=== PATIENT | male | born 1940 | race Caucasian/White ===

== ENCOUNTER 2018-12-14 15:13 | Inpatient (IN) | payer MEDICARE, OTHER ==
[~2018-12-14] VITALS: Ht 175.3 cm; Wt 76.2 kg
--- NOTE | ~2018-12-14 | CON ---
[address] [address] CONSULTATION Name: CONCHA MEZA Room: [address] IN .R.#: [id number] Admission: 12/14/18 Attend Phys: Cathleen Norton Discharge: Date of : 40 Report #: [id number] THIS REPORT FOR: //name// CC: ATUL Bingham Physician staff DATE OF SERVICE: 12/15/2018 HISTORY OF PRESENT ILLNESS: This is a 78-year-old male with significant family history of colon cancer and personal history of colon polyps, who reports that for the last 2 months, he has had blood in the stool and his bowel habit change and has diarrhea. He also occasionally may have mid abdominal pain. He denies any upper GI symptoms as he denies nausea, vomiting, dyspepsia, dysphagia or odynophagia. The patient reports that he has lost over 50 pounds in the last 6 months, but claims that he has done that intentionally as he quit eating much and also does not drink soda pops anymore. PAST MEDICAL HISTORY: Significant for history of paroxysmal atrial fibrillation, seizure disorder, sleep apnea, basal cell carcinoma and squamous cell carcinoma with multiple areas including head and shoulder where he had recent resection of his skin. ALLERGIES: No known drug allergy. MEDICATIONS: Please refer to MAR. SOCIAL HISTORY: The patient has remote history of tobaccoism, but has quit more than 20 years ago. He admits to drinking alcohol only on special occasions. FAMILY HISTORY: Significant for colon cancer in first-degree relatives. PHYSICAL EXAMINATION: VITAL SIGNS: Reveals blood pressure of 128/65, respirations 17, pulse 67, temperature 98.2. LUNGS: Clear. CARDIOVASCULAR: Regular. ABDOMEN: Soft, tender to palpation in the periumbilical region. Bowel sounds are positive. NEUROLOGIC: The patient is alert and oriented x 3. There is no focal neurologic deficit. SKIN: The patient has sutures on his head and left clavicle region when he had recent skin resection for skin cancer. LABORATORY DATA: Reveal sodium of 142, potassium 4.2, BUN is 11, [place] [address] CONSULTATION Name: CONCHA MEZA Room: [address] IN [facility]#: [id number] Admission: 12/14/18 Attend Phys: Cathleen Norton Discharge: Date of : 40 Report #: [id number] 0.8, glucose 89, AST 17, ALT 26, alkaline phosphatase 27. Albumin is 3.7. WBC is 4.3 with hemoglobin of 11.6 and platelet of 225. IMAGING: CT of abdomen and pelvis was obtained. This showed a 6.5 cm circumferential mucosal lesion in the hepatic flexure of the colon, most suspicious for malignancy. There is also bladder wall thickening and prostatic enlargement. The small bowel appears unremarkable. The stomach and spleen are unremarkable. Gallbladder is partially contracted. There is a branching area of the low density in the right lobe of the liver. This is too small to accurately characterize and measures less than 1 cm. This may suggest ductal dilatation. A smaller liver lesion is felt less likely, but cannot be excluded based on this study. ASSESSMENT AND PLAN: The patient with history of change in bowel habits, blood in the stool, abnormal CTA with 6.5 cm circumferential hepatic lesion suspicious for malignancy, who also has weight loss even though he claims that this is intentional. He has a strong family history of colon cancer. I will perform colonoscopy tomorrow. Meanwhile order CEA level and monitor H and H. By: 1144 [id number] Flores MD /nt
--- NOTE | ~2018-12-14 | PROC ---
[address] [address] PROCEDURE REPORT Name: CONCHA MEZA Room: [address] IN M.R.#: [id number] Admission: 12/14/18 Attend Phys: Michelle Jacoboo Discharge: Date of : 40 Report #: [id number] THIS REPORT FOR: //name// For GI report, please see the Provation report in Perceptive 7 content. By: [id number] Records Staff MARIANA /DARI
[2018-12-14 16:00] VITALS: BP 103/62
--- NOTE | 2018-12-14 16:00 | NUR ---
PATIENT ARRIVED TO UNIT AT 1540. ALERT AND ORIENTED X 4. AMBULATED FROM WHEELCHAIR TO BED. NO IV ACCESS AT THIS TIME. DENIES PAIN AND NAUSEA. ORIENTED PATIENT TO ROOM. CALL LIGHT WITHIN REACH. NURSING WILL CONTINUE TO MONITOR.
[2018-12-14 17:47] LABS: ABSOLUTE EOSINOPHILS 0.1 thou/uL (0.0-0.7); ABSOLUTE LYMPHOCYTES 0.7 thou/uL (0.8-5.3); ABSOLUTE MONOCYTES 0.3 thou/uL (0.0-1.2); ABSOLUTE NEUTROPHILS 2.6 thou/uL (1.6-8.1); BASOPHILS 0.5 %; EOSINOPHILS 3.1 %; HEMATOCRIT 36.7 % (42.0-52.0); HEMOGLOBIN 12.5 gm/dL (14.0-18.0); LYMPHOCYTES 19.6 %; MCH 28.2 pg (26.0-34.0); MCHC 33.9 g/dL (28.0-37.0); MCV 83.1 fL (80.0-100.0); MONOCYTES 7.2 %; MPV 8.1 fl. (7.2-11.1); NUCLEATED RBCS 0 /100WBC; PLATELET COUNT* 229 thou/uL (150-400); POLYS 69.6 %; RBC 4.41 mil/uL (4.50-6.00); RDW-CV 15.2 % (10.5-14.5); WBC 3.8 thou/uL (4.0-11.0)
[2018-12-14 18:03] LABS: ALBUMIN 3.7 g/dL (3.4-5.0); CALCIUM 8.6 mg/dL (8.5-10.1); CREATININE 0.9 mg/dL (0.6-1.3); POTASSIUM 3.8 mmol/L (3.5-5.1); TOTAL BILIRUBIN 0.4 mg/dL (<0.1-1.0); TOTAL PROTEIN 7.4 g/dL (6.4-8.2)
--- NOTE | 2018-12-14 18:51 | NUR ---
PATIENT ALERT AND ORIENTED X 4. VITAL SIGNS STABLE ON ROOM AIR. UP INDEPENDENTLY IN ROOM. IV PATENT AND SALINE LOCKED. DENIES PAIN AND NAUSEA. HOURLY ROUNDS MAINTAINED SINCE ARRIVING TO UNIT. CALL LIGHT WITHIN REACH. NURSING WILL CONTINUE TO MONITOR.
[2018-12-14] MEDS ORDERED: PHENOBARBITAL32.4 M2 PO (19:01)
[2018-12-14] MEDS ORDERED: COMBIGAN EYE DR10 ML OPHTHALMIC (19:01)
[2018-12-14] MEDS ORDERED: LATANOPROST 0.2.5 ML OPHTHALMIC (19:02)
[2018-12-14] MEDS ORDERED: BRIMONIDINE TART5 ML OPHTHALMIC (19:02)
[2018-12-14] MEDS ORDERED: PHENYTOIN SODI100 M3 PO (19:02)
[2018-12-14] MEDS ORDERED: LORATIDINE 10 M10 M1 PO (19:03)
[2018-12-14] MEDS ORDERED: LUTEIN20 MG PO (19:04)
[2018-12-14 20:30] VITALS: BP 115/73
[2018-12-15 04:38] LABS: CALCIUM 8.5 mg/dL (8.5-10.1); CREATININE 0.8 mg/dL (0.6-1.3); POTASSIUM 4.2 mmol/L (3.5-5.1)
[2018-12-15 05:24] LABS: HEMATOCRIT 34.1 % (42.0-52.0); HEMOGLOBIN 11.6 gm/dL (14.0-18.0); MCH 28.3 pg (26.0-34.0); MCHC 33.9 g/dL (28.0-37.0); MCV 83.5 fL (80.0-100.0); MPV 8.7 fl. (7.2-11.1); RBC 4.09 mil/uL (4.50-6.00); RDW-CV 15.2 % (10.5-14.5); WBC 4.3 thou/uL (4.0-11.0)
--- NOTE | 2018-12-15 05:43 | NUR ---
PT ALERT AND ORIENTED. VSS RA. PT HAD BM WITH SMALL AMOUNT OF BLOOD SMALL AMOUNT OF BLOOD. DENIED PAIN. NO NAUSEA/VOMITING. HOME MEDS STARTED PER PT REQUEST, GIVEN ORDERED. PT SLEEPING THROUGH THE NIGHT WITH HOME CPAP ON. NPO FOR ABD CT. WILL CONTINUE TO MONITOR.
[2018-12-15] MEDS ORDERED: RAPAFLO8 MG PO (07:35)
[2018-12-15 07:50] VITALS: BP 128/65
[2018-12-15 16:00] VITALS: BP 134/72
--- NOTE | 2018-12-15 17:08 | NUR ---
ASSUMED CARE OF PATIENT AT APPROX 0730. ALERT AND ORIENTED X4. ASSESSMENT COMPLETED AND CHARTED. VSS ON ROOM AIR. NO COMPLAINTS OF PAIN, NAUSEA OR SOA. CLEAR LIQUID DIET TODAY, NPO AT 0200 FOR COLONOSCOPY TOMORROR. PATIENTS BOWEL PREP STARTED AND PATIENT HAS BEGUN HAVING STOOLS. UP AD KAYLA TO USE THE BATHROOM. NO OTHER COMPLAINTS THIS SHIFT. HOURLY ROUNDS COMPLETED. CALL LIGHT WITHIN REACH. NURSING WILL CONTINUE TO MONITOR.
[2018-12-15 20:35] VITALS: BP 122/68
[2018-12-15 23:43] VITALS: BP 122/68
[2018-12-16 03:42] LABS: HEMATOCRIT 36.2 % (42.0-52.0); HEMOGLOBIN 12.1 gm/dL (14.0-18.0); MCH 27.9 pg (26.0-34.0); MCHC 33.5 g/dL (28.0-37.0); MCV 83.4 fL (80.0-100.0); MPV 9.7 fl. (7.2-11.1); RBC 4.34 mil/uL (4.50-6.00); RDW-CV 15.5 % (10.5-14.5); WBC 4.3 thou/uL (4.0-11.0)
[2018-12-16 03:48] LABS: CALCIUM 8.6 mg/dL (8.5-10.1); CREATININE 0.7 mg/dL (0.6-1.3); POTASSIUM 3.7 mmol/L (3.5-5.1)
--- NOTE | 2018-12-16 05:15 | NUR ---
VSS RA. MEDS GIVEN ORDERED. PT BOWEL PREPED FOR COLONOSCOPY. CLEAR STOOL NOTED. EKG DONE ORDERD. NO C/O PAIN, N/V. NPO AT 0200. AT BEDSIDE. WILL CONTINUE TO MONITOR.
[2018-12-16 06:20] VITALS: BP 158/82
--- NOTE | 2018-12-16 06:27 | NUR ---
SEIZURE EPISODE WITNESSED BY . POST SEIZURE VITALS STABLE. PT OPENED HIS EYES TO NAME. SUCTION PLACED IN THE ROOM. RAILS PADDED. WILL CONTINUE TO MONITOR.
[2018-12-16 08:00] VITALS: BP 106/71
[2018-12-16 16:59] VITALS: BP 115/65
--- NOTE | 2018-12-16 17:03 | NUR ---
ASSUMED CARE OF PATIENT AT APPROX 0730. ALERT AND ORIENTED X4. ASSESSMENT COMPLETED AND CHARTED. VSS ON ROOM AIR. NO COMPLAINTS OF PAIN, NAUSEA, OR SOA. PATIENTS STATED THAT HE HAD A SEIZURE EARLY THIS MORNING. THIS WAS REPORTED TO PACU, ANETHESIA STATED THAT PATIENT NEEDS TO BE SEIZRE FREE FOR 24 HOURS BEFORE GOING UNDER FOR PROCEDURE. DR DEGROOT ORDERED LORAZEPAN Q8 TO BE GIVEN. PATIENTS HOME SEIZURE MEDS GIVEN ORDERED. PATIENTS BOWEL PREP IS COMPLETED, WILL CONTINUE WITH CLEARS AND NPO AT MIDNIGHT TO HAVE COLONOSCOPY TOMORROW. PATIENT UP AD KAYLA IN THE ROOM. NUMEROUS FAMILY AT BEDSIDE THROUGHOUT SHIFT. NO COMPLAINTS VOICED THIS SHIFT. CALL LIGHT WITHIN REACH. HOURLY ROUNDS COMPLETED. NURSING WILL CONTINUE TO MONITOR.
[2018-12-16 21:10] VITALS: BP 131/71
[2018-12-16 23:15] VITALS: BP 114/63
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
[2018-12-17 00:06] VITALS: BP 114/63
[2018-12-17 00:33] VITALS: BP 126/70
--- NOTE | 2018-12-17 05:05 | NUR ---
MEDS GIVEN ORDERED, VSS RA. FALL REPORTED BY , INTERVENTIONS COMPLETED AND CHARTED PER PROTOCOL. DR AND DROP MACHINE OPERATOR NOTIFIED, NO ORDERS RECEIVED. PT DENIED PAIN. NPO AT MIDNIGHT. WILL CONTINUE TO MONITOR.
[2018-12-17 05:06] LABS: HEMATOCRIT 36.4 % (42.0-52.0); HEMOGLOBIN 12.2 gm/dL (14.0-18.0); MCH 27.9 pg (26.0-34.0); MCHC 33.6 g/dL (28.0-37.0); MCV 83.2 fL (80.0-100.0); MPV 8.2 fl. (7.2-11.1); RBC 4.38 mil/uL (4.50-6.00); RDW-CV 14.9 % (10.5-14.5); WBC 5.2 thou/uL (4.0-11.0)
[2018-12-17 07:50] VITALS: BP 107/64
--- NOTE | 2018-12-17 15:05 | EKG ---
[place] [address] ELECTROCARDIOGRAM REPORT Name: CONCHA MEZA Room: [address] ADM IN M.R.#: [id number] Admission: 12/14/18 Attend Phys: Michelle Vigil Discharge: Date of : 40 Report #: [id number] THIS REPORT FOR: //name// [facility] Test Date: 2018-12-15 Test Time: 22:31:58 Pat Name: CONCHA ANDERSONSH Department: Room: [address] Gender: M Mortgage Closing Clerk: RB : 1940 Requested By: Tamie Flores Order Number: [id number] Reading MD: James Erazo Measurements Intervals Crane Rate: 62 P: 130 MT: 66 QRS: 48 QRSD: 97 T: 30 QT: 422 QTc: 429 Interpretive Statements Sinus rhythm poor r wave progression Supraventricular bigeminy Short MT interval No previous ECG available for comparison Electronically Signed On 12-17-2018 15:05:18 STORE SALES CONSULTANT by James Erazo [email or web address] <ELECTRONICALLY SIGNED> By: James Erazo MD, [facility] 12/17/18 1505 30 30 James Erazo MD, FACC /EPI
--- NOTE | 2018-12-17 17:45 | NUR ---
PATIENT NPO THIS AM FOR COLONOSCOPY. PATIENT RETURNED FROM COLONOSCOPY THIS EVENING, VSS. PATIENT TO HAVE SURGERY TOMORROW AT 0730. NPO AFTER MIDNIGHT. MAG CITRATE AND DUCOLAX TO BE GIVEN THIS EVENING FOR SURGERY PREP. CLEAR LIQUID DIET. IV SL. UP WITH ASSISTANCE.
[2018-12-17 19:44] VITALS: BP 105/67
[2018-12-18 02:48] VITALS: BP 97/58
[2018-12-18 04:00] VITALS: BP 97/58
--- NOTE | 2018-12-18 04:45 | NUR ---
ASSUMED CARE OF PT 12/17/18 AT APPROX 1930, PT A&OX4 THORUGHOUT SHIFT, VSS, PT ON ROOM AIR, COLON PREP COMPLETED, ASSESSMENTS AND HOURLY ROUNDINGS COMPLETED, WILL CONTINUE TO MONITOR.
--- NOTE | 2018-12-18 09:40 | CON ---
[address] [address] CONSULTATION Name: CONCHA MEZA Room: [address] IN .R.#: [id number] Admission: 12/14/18 Attend Phys: Michelle Vigil Discharge: Date of : 40 Report #: [id number] THIS REPORT FOR: //name// CC: ATUL Bingham Physician staff DATE OF SERVICE: 12/16/2018 ONCOLOGY CONSULTATION REASON FOR CONSULTATION: Colon mass. SUBJECTIVE: This is a 78-year-old male who has been very active and had a colonoscopy per the family in 2016 noticed blood in the stool with a change in his bowel habits associated with diarrhea, intermittent mild generalized abdominal pain. He denies any nausea, vomiting or abdominal pain. He had lost 50 pounds in the last 6 months. The patient had an evaluation at the Emergency Room with a CT scan of contrast, which showed 6.5 circumferential mucosal lesion in the hepatic flexure of the colon, most suspicious of colon cancer. The patient is in the process of having colonoscopy today. REVIEW OF SYSTEMS: All systems were reviewed, it was negative except the above. PAST MEDICAL HISTORY: AFib, seizure disorder, sleep apnea, basal cell carcinoma status post resection. MEDICATIONS: Per admission list. ALLERGIES: SULFA. SOCIAL HISTORY: The patient lives independently at home, lives with his . He is a former smoker, more than 20 years ago. He drinks alcohol socially. FAMILY HISTORY: Positive for colon cancer in the family. PHYSICAL EXAMINATION: VITAL SIGNS: Today; temperature is 36.6, pulse is 85, respiration is 18 and blood pressure is 158/82 GENERAL: The patient was sitting in chair, was not in acute distress. LUNGS: Clear to auscultations bilaterally. HEART: Regular rate and rhythm. S1, S2 within normal limits. ABDOMEN: Soft, nontender, nondistended, bowel sounds positive. LABORATORY DATA: Labs today; WBC 4.3, hemoglobin 12.1 and platelets of 115[place] [address] CONSULTATION Name: CONCHA MEZA Room: [address] IN [facility]#: [id number] Admission: 12/14/18 Attend Phys: Michelle selby [place] Discharge: Date of : 40 Report #: [id number] Sodium is 138, potassium 3.7, creatinine 0.7, bilirubin 0.4, AST 17, ALT 26 and alkaline phosphatase 127. CEA is pending. ASSESSMENT: This is a 78-year-old male who has been diagnosed with a colon mass at the hepatic flexure, 6.5 circumferential mass. The patient had a colonoscopy back in 2016 per the family. RECOMMENDATIONS: 1. Colonoscopy today for a tissue sampling. 2. We will obtain a CT chest to complete staging. 3. A CEA has been ordered and still pending. 4. In regards of the area of low density in the right lobe of the liver measuring less than 1 cm, it was felt to be related to mild ductal dilatation; however, small liver mass is less likely, cannot be excluded. I would like to wait until we get a diagnosis of malignancy. Options will be liver MRI before proceeding with a standard oncological resection with surgery. <ELECTRONICALLY SIGNED> By: Olivia Levine MD 12/18/18 0940 0913 [id number] Levine MD /nt
--- NOTE | 2018-12-18 14:06 | NUR ---
PT ARRIVED TO FLOOR ABOUT 1320. PT A&Ox4, DROWSY. CPAP ON WITH 2LO2 GOING THROUGH IT. DRESSING SITES ARE C/D/I. PT DENIED N/V AND PAIN. JUSTIN PATENT. IV PATENT. FAMILY IN ROOM. ON CLEAR LIQUID DIET. PT HAS NOT AMBULATED SINCE RETURN TO FLOOR. FALL PRECAUTIONS IN PLACE. SPOKE WITH DR CHAVEZ PER SURGERY REQUEST ABOUT THE DILANTIN, STATED THAT SHE WILL BE BY IN THE MORNING 12/19 TO SPEAK WITH PT AND FAMILY. WILL CONTINUE TO MONITOR.
[2018-12-18 14:15] VITALS: BP 135/65
[2018-12-18 15:48] VITALS: BP 129/67
--- NOTE | 2018-12-18 17:06 | PATH ---
[address] [address] PATHOLOGY RPT PROCEDURE Name: CONCHA MEZA Room: [address] IN .R.#: [id number] Admission: 12/14/18 Date of : 40 Discharge: Report #: [id number] Path Case #: [id number] [facility] Accession Number: [id number] . 01 Material submitted: . colon - TRANSVERSE COLON MASS. Modifiers: transverse . 01 Clinical history: . None provided . 02 Diagnosis: TRANSVERSE COLON MASS: - ADENOCARCINOMA, MODERATELY DIFFERENTIATED, WITH PROMINENT EXTRACELLULAR MUCINOUS COMPONENT. SEE COMMENT. LBQ 12/18/2018 1005 Local . 02 Comment: Reviewed with Dr. Lyly Styles who agrees with the diagnosis. Dr. Flores notified at approximately 1540 on 12/18/2018. (SOHAN/db; 12/18/2018) . 02 Electronically signed: . Jeronimo Wong MD, Pathologist NPI- [id number] . 01 Gross description: . Received in formalin labeled "Concha Meza, transverse colon mass highly suspicious for cancer," are 3 segments of vega soft tissue measuring 0.9 x 0.9 x 0.2 cm in aggregate dimensions and ranging from 0.4 to 0.5 cm in maximum dimension. The specimen is submitted entirely in cassette A1. (TSD; 12/17/2018) TOB/TOB 12/17/2018 2338 Local . 02 Pathologist provided ICD-10: C18.4 . 02 CPT . [id number] Specimen Comment: A courtesy copy of this report has been sent to [phone] Specimen Comment: [phone], Specimen Comment: Report sent to ,DR LOPEZ / DR VELEZ Performed at: [address] [facility] [id number] MD Tony Sandoval MD Phone: [phone] Performed at: 02 [place] [address] PATHOLOGY RPT PROCEDURE Name: CONCHA MEZA Room: [address] IN [facility].#: [id number] Admission: 12/14/18 Date of : 40 Discharge: Report #: [id number] Path Case #: [id number] [address] LUDY Bray [id number] MD Jeronimo Wong MD Phone: [phone]
--- NOTE | 2018-12-18 18:18 | NUR ---
PT A&Ox4. VITALS STABLE. HARD OF HEARING. HAS BEEN RESTING SINCE LAST NOTE. TOLERATING CLEAR LIQUIDS. IV PATENT. PAIN CONTROLLED WITH OXY IR. DENIED N/V. HAS NOT AMBULATED DURING SHIFT. BY BEDSIDE. NHAN PATENT. FALL PRECAUTIONS IN PLACE. SEIZURE PRECAUTIONS IN PLACE. CALL LIGHT WITHIN REACH. WILL CONTINUE TO MONITOR.
[2018-12-18 18:24] LABS: BE -1.6 mmol/L (-2 to +3); PCO2 VENOUS 46.2 mmHg (41.0-51.0)
[2018-12-18 18:48] LABS: CALCIUM 7.9 mg/dL (8.5-10.1); CREATININE 0.8 mg/dL (0.6-1.3); POTASSIUM 4.1 mmol/L (3.5-5.1)
[2018-12-18 19:52] VITALS: BP 116/66
[2018-12-18 20:11] VITALS: BP 124/67
[2018-12-19] VITALS: BP 128/74
[2018-12-19 04:00] VITALS: BP 148/82
[2018-12-19 05:29] LABS: ABSOLUTE EOSINOPHILS 0.1 thou/uL (0.0-0.7); ABSOLUTE LYMPHOCYTES 0.8 thou/uL (0.8-5.3); ABSOLUTE MONOCYTES 0.6 thou/uL (0.0-1.2); BASOPHILS 0.4 %; EOSINOPHILS 0.9 %; HEMOGLOBIN 12.2 gm/dL (14.0-18.0); MCH 28.3 pg (26.0-34.0); MCHC 34.7 g/dL (28.0-37.0); MCV 81.6 fL (80.0-100.0); MONOCYTES 9.4 %; MPV 8.5 fl. (7.2-11.1); NUCLEATED RBCS 0 /100WBC; PLATELET COUNT* 209 thou/uL (150-400); POLYS 76.3 %; RBC 4.29 mil/uL (4.50-6.00); RDW-CV 14.8 % (10.5-14.5); WBC 6.5 thou/uL (4.0-11.0)
[2018-12-19 05:43] LABS: CALCIUM 7.7 mg/dL (8.5-10.1); CREATININE 0.7 mg/dL (0.6-1.3); POTASSIUM 3.8 mmol/L (3.5-5.1)
--- NOTE | 2018-12-19 07:30 | NUR ---
ASSUMED CARE OF PT 12/18/18 AT APPROX 1930, PT A&OX4 THROUGHOUT SHIFT, PAIN MEDS REQUESTED AND GIVEN ORDERED, VSS, ASSESSMENTS AND HOURLY ROUNDINGS COMPLETED, REPORT GIVEN AND CARE TRANSFERED TO PEEWEE TIRADO 12/19/18 AT APPROX 0720.
[2018-12-19 08:20] VITALS: BP 137/72
--- NOTE | 2018-12-19 15:45 | NUR ---
CM SPOKE WITH PT.'S . HE WAS IN THE RESTROOM. SHE SAID HE WAS INDEPENDENT PRIOR TO HIS SURGERY. HE USES NO DME. NO HX OF HH OR SNF. SHE DID NOT FEEL HE WOULD NEED ANYTHING AT DISCHARGE. CM WILL BE AVAILABLE IF NEEDED.
--- NOTE | 2018-12-19 17:51 | NUR ---
PT A&Ox4. VITALS STABLE. IV PATENT. UP WITH 1 USING GAITBELT AND WALKER. NHAN [place]T THIS MORNING ABOUT 1000. ABLE TO VOID. PAIN CONTROLLED WITH OXY IR. DENIED N/V. TOLERATING FULL LIQUID DIET. FAMILY IN ROOM. CALL LIGHT WITHIN REACH. FALL PRECAUTIONS IN PLACE. SEIZURE PRECAUTIONS IN PLACE. WILL CONTINUE TO MONITOR.
[2018-12-19 19:42] VITALS: BP 123/79
[2018-12-20 00:18] VITALS: BP 124/71
--- NOTE | 2018-12-20 03:43 | NUR ---
ASSUMED CARE OF PT 12/19/18 AT APPROX 1930, PT A&OX4 THROUGHOUT SHIFT, PT ON ROOM AIR, VSS, PAIN MEDS REQUESTED AND ADMINISTERED ORDERED, ASSESSMENTS AND HOURLY ROUNDINGS COMPLETED, FALL PRECAUTIONS IS PLACE, WILL CONTINUE TO MONITOR.
[2018-12-20 04:06] VITALS: BP 130/76
[2018-12-20 04:16] LABS: NUCLEATED RBCS 0 /100WBC
[2018-12-20 04:19] LABS: ABSOLUTE EOSINOPHILS 0.1 thou/uL (0.0-0.7); ABSOLUTE LYMPHOCYTES 0.9 thou/uL (0.8-5.3); ABSOLUTE MONOCYTES 0.5 thou/uL (0.0-1.2); ABSOLUTE NEUTROPHILS 4.1 thou/uL (1.6-8.1); BASOPHILS 0.3 %; EOSINOPHILS 2.1 %; HEMATOCRIT 36.5 % (42.0-52.0); HEMOGLOBIN 12.5 gm/dL (14.0-18.0); LYMPHOCYTES 16.3 %; MCH 28.1 pg (26.0-34.0); MCHC 34.2 g/dL (28.0-37.0); MCV 82.1 fL (80.0-100.0); MONOCYTES 9.3 %; MPV 9.3 fl. (7.2-11.1); PLATELET COUNT* 213 thou/uL (150-400); RBC 4.45 mil/uL (4.50-6.00); RDW-CV 15.1 % (10.5-14.5); WBC 5.7 thou/uL (4.0-11.0)
[2018-12-20 04:36] LABS: CALCIUM 8.3 mg/dL (8.5-10.1); CREATININE 0.7 mg/dL (0.6-1.3); MAGNESIUM 2.1 mg/dL (1.8-2.4)
[2018-12-20 07:25] VITALS: BP 128/74
[2018-12-20 16:11] VITALS: BP 115/68
--- NOTE | 2018-12-20 16:59 | NUR ---
PT REMAINED ALERT AND ORIENTED. PT RESTING IN BED. PAIN MEDS GIVEN ORDERED. FALL RISK PRECAUTIONS IN PLACE. HOURLY ROUNDING COMPLETED. WILL CONTINUE TO MONITOR.
[2018-12-20 19:37] VITALS: BP 99/58
[2018-12-20 21:52] VITALS: BP 104/58
[2018-12-21 03:55] LABS: ABSOLUTE EOSINOPHILS 0.3 thou/uL (0.0-0.7); ABSOLUTE MONOCYTES 0.5 thou/uL (0.0-1.2); ABSOLUTE NEUTROPHILS 3.9 thou/uL (1.6-8.1); BASOPHILS 0.3 %; EOSINOPHILS 4.6 %; HEMATOCRIT 34.1 % (42.0-52.0); HEMOGLOBIN 11.7 gm/dL (14.0-18.0); LYMPHOCYTES 17.1 %; MCH 28.2 pg (26.0-34.0); MCHC 34.2 g/dL (28.0-37.0); MCV 82.4 fL (80.0-100.0); MPV 9.3 fl. (7.2-11.1); NUCLEATED RBCS 0 /100WBC; PLATELET COUNT* 201 thou/uL (150-400); RBC 4.14 mil/uL (4.50-6.00); RDW-CV 15.4 % (10.5-14.5); WBC 5.6 thou/uL (4.0-11.0)
[2018-12-21 04:07] LABS: CALCIUM 8.1 mg/dL (8.5-10.1); CREATININE 0.9 mg/dL (0.6-1.3); MAGNESIUM 1.9 mg/dL (1.8-2.4)
--- NOTE | 2018-12-21 04:49 | NUR ---
PATIENT ORIENTED X 4 THROUGHOUT INTERACTIONS THIS SHIFT. RESTING QUIETLY ON HOURLY ROUNDS. FELL ASLEEP IN RECLINER PRIOR TO HS. ABDOMINAL INCISION SITES CLEAN AND DRY. HYPOACTIVE BOWEL SOUNDS PRESENT. PATIENT HAS DENIED PASSING GAS. MEDICATED X 1 FOR PAIN OF THIS WRITING. VITAL SIGNS STABLE WITH BP LOW END OF NORMAL LIMITS. UP WITH ASSIST OF ONE AND GAIT BELT. ASSISTING PATIENT WITH CARES AND HAS BEEN AT BEDSIDE THROUGHOUT SHIFT. PATIENT REPORTING LEFT KNEE FROM FALL EARLIER THIS WEAK IS TENDER. NOTE FADING GREENISH BRUISE AND SOME SOFT SWELLING. HAS DENIED NAUSEA WITH ORAL INTAKE. CONTINUE TO MONITOR.
[2018-12-21 06:00] VITALS: BP 123/71
[2018-12-21 08:57] VITALS: BP 111/71
--- NOTE | 2018-12-21 09:03 | NUR ---
PHYSICIAN'S ORDER COMPLETED INADVERTANTLY 12/20/18. PATIENT IS TO CONTINUE PHYSICAL THERAPY AT THIS TIME. WILL CONTINUE THERAPIST DESPITE COMPLETED STATUS IN [facility]. PAULINO JOHNSON,MPT
--- NOTE | 2018-12-21 13:15 | NUR ---
Nutrition: Pt assessed for LOS. S/p Rt hemicolectomy/anastomosis. Wt: 167#. Regular diet ordered. Pt was tolerating Liquids. Has PT. Currently, no nutrition interventions needed. Will follow for POC, po tolerance, labs. Mild risk. F/u 12/26/18.
[2018-12-21 15:29] VITALS: BP 97/59
--- NOTE | 2018-12-21 17:00 | NUR ---
PT REMAINED ALERT AND ORIENTED. PT EDUCATED ON USING CALL LIGHT WHEN NEEDING PAIN MEDS. SUPPOSITORY GIVEN ORDERED. XRAYS ORDERED, AWAITING RESULTS. FALL RISK PRECAUTIONS IN PLACE. HOURLY ROUNDING COMPLETED. WILL CONTINUE TO MONITOR.
[2018-12-21 20:40] VITALS: BP 117/71
--- NOTE | 2018-12-22 04:50 | NUR ---
PATIENT HAS REMAINED ALERT AND ORIENTED X 4 THROUGHOUT THE SHIFT AND RESTING QUIETLY AT HOURLY ROUNDS. UP TO BR IN EARLY EVENING WITH BM. FLUSHED TOILET AND NURSING DID NOT SEE. LAP SITES TO ABDOMEN CLEAN AND DRY. VITAL SIGNS STABLE. NO SEIZURE ACTIVITY OBSERVED OR REPORTED. FAMILY AT BEDSIDE. DENIES NAUSEA. X-RAY RESULT EXPLANATION DEFERED TO PHYSICIAN TODAY. CONTINUE TO MONITOR.
[2018-12-22 06:00] VITALS: BP 115/67
[2018-12-22 07:15] VITALS: BP 104/63
--- NOTE | 2018-12-22 17:41 | NUR ---
TOOK OVER PT CARE FROM JAMEE AND MOVED FROM 1ST FLOOR TO 3RD AT 1600. PT STABE. IV PATENT. UP STAND BY. MINIMAL PAIN, DENIED PAIN MEDS. DENIED N/V. BM TODAY. SEIZURE PRECAUTIONS IN PLACE. CALL LIGHT WITHIN REACH. WILL CONTINUE TO MONITOR.
[2018-12-22 21:01] VITALS: BP 128/64
--- NOTE | 2018-12-23 05:19 | NUR ---
PT WAS ABLE TO HAVE SEVERAL SOFT FORMED BM THROUGH DAY/WATER TAXI FERRY OPERATOR. HE DID NOT REQUEST ANY MIRALAX. STILL STANDBY WITH WALKER, SELF CATH, R/A, ABDOMINAL DRESSING IS C/D/I. PLAN IS TO D/C HOME WITH HOMEHEALTH OR POSSIBLE OUTPATIENT PT. PAIN IS WELL MANAGED. WILL CONTINUE TO FOLLOW PLAN OF CARE.
[2018-12-23 05:20] LABS: DILANTIN 13.3 mcg/mL (10.0-20.0)
[2018-12-23 05:52] LABS: PHENOBARBITAL* 16.9 mcg/mL (15.0-40.0)
[2018-12-23 07:44] VITALS: BP 109/63
[2018-12-23 10:21] VITALS: BP 109/63
[2018-12-23] MEDS ORDERED: DILANTIN50 MG PO (12:21)
[2018-12-23] MEDS ORDERED: ROXICODONE5 M2 PO (13:08)
--- NOTE | 2018-12-23 13:48 | NUR ---
PT DISCHARGED TO HOME WITH OP PT BY WHEELCHAIR AT 1343 WITH NURSING STAFF AND . PT BELONGINGS SENT WITH PT. IV OUT. DRESSING C/D/I. PT STABLE UPON DISCHARGE. PAPER SCRIPTS GIVEN, INCLUDING ONES FOR A WALKER AND OP THERAPY. PT AND ARE AWEAR THAT PT NEEDS TO GET A WALKER TOMORROW, STATED THEY WILL BUY ONE FROM [employer] IF INSURANCE DOES NOT COVER IT. WILL BE STAYING WITH DAUGHTER FOR 1 WEEK WHILE IN THERAPIES.
--- NOTE | 2018-12-24 09:39 | NUR ---
LATE ENTRY FOR 12/22 1400, RECEIVED CALL FROM NEEDLE GRINDER TO DISCUSS DC PLAN, PT PLANNING TO RETURN HOME TO [place] AND REQUESTING FOR PT TO GO TO OUTPT THERAPY IN HOSPITAL THERE SHE WORKS THERE. GAVE INFO ON REQUESTING SCRIPT FROM FOR OUTPT THERAPY. ALSO DISCUSSED HOW TO OBTAIN WALKER FOR PT IF NEEDED. LATE ENTRY FOR 12/23 1255, RECEIVED ANOTHER CALL FROM NEEDLE GRINDER TO DISCUSS DC PLAN. REITERATED HOW TO OBTAIN ORDER FOR WALKER AND OUTPT THERAPY WITH [facility] GRINDER.
--- NOTE | 2018-12-24 17:19 | OP ---
[address] [address] OPERATIVE REPORT Name: CONCHA MEZA Room: [address] M.R.#: [id number] Admission: 12/14/18 Attend Phys: Michelle Vigil Discharge: 12/23/18 Date of : 40 Report #: [id number] THIS REPORT FOR: //name// CC: ATUL Kwok Physician staff DATE OF SERVICE: 12/18/2018 SURGEON: Raul Knight DO [place]EDDING DECORATOR: Tim Patricio DO SECOND EMAIL MARKETING ASSISTANT: Vlad De Anda DO PREOPERATIVE DIAGNOSIS: Colon cancer. POSTOPERATIVE DIAGNOSIS: Colon cancer. PROCEDURE: Laparoscopic right extended hemicolectomy. INDICATIONS: The patient presented to [facility] with abdominal pain, fatigue, bloating and weight loss. CT imaging revealed a large hepatic flexure mass. He underwent colonoscopy, which again revealed a large mass near his hepatic flexure, suspicious for cancer. Biopsies were taken and the area was tattooed. Given the near obstructing mass and suspicion of cancer the patient was consented for a right extended hemicolectomy. The risks and benefits of surgery were explained. All questions were answered. Risks including bleeding, infection, damage to nearby structures, anastomotic breakdown and need for further surgery were explained. The patient agreed to proceed with surgery. DESCRIPTION OF PROCEDURE: The patient was taken to the operating theater and placed in the supine position. General anesthesia was induced without complication. Bilateral SCDs were placed. Preoperative antibiotics were given. The patient's abdomen was prepped and draped in the standard sterile fashion. A timeout was performed and all were in agreement. An infraumbilical incision was made with an 11 blade scalpel. This was approximately 1 cm in length. Dissection was carried down to the midline fascia and this was incised using electrocautery. The abdomen was entered bluntly using a hemostat. Bg trocar was placed. Camera was introduced and there appeared to be no injury on abdominal entry. Next, a 5-mm port was placed in the left lower quadrant under direct visualization. Then, a 5-mm port was placed in the suprapubic position under direct visualization. The patient was placed in Trendelenburg to the left. The abdomen was inspected for metastatic disease. There [place] [address] OPERATIVE REPORT Name: CONCHA MEZA Room: [address]#: [id number] Admission: 12/14/18 Attend Phys: Michelle Vigil Discharge: 12/23/18 Date of : 40 Report #: [id number] on the liver. There was a small subcentimeter liver lesion that was mentioned on a preoperative CT scan and we could not visualize this. There was no peritoneal studding or other signs of metastatic disease. The tattoo and mass were appreciated to be in the proximal transverse colon. Next, using one laparoscopic [place] to pull the cecum medial. The white line of [place] was taken down using electrocautery performing a lateral to medial dissection in the avascular plane. A third 5-mm trocar was placed in the left upper quadrant and the hepatic flexure was retracted inferiorly and medially. At this point, the patient was placed in the reverse Trendelenburg position. Using electrocautery, the retroperitoneal and colonic attachments were taken down at the hepatic flexure. Thereafter, the stomach was elevated anteriorly. The transverse colon was elevated anteriorly and inferiorly and the lesser sac was entered using a Harmonic device. The colon and its mesentery with the attached omentum were bluntly dissected from the stomach and lesser omentum. The Harmonic scalpel was also used to separate these structures. The colon was then completely mobilized medially. Next, the cecum was lisfed anteriorly and inferiorly to tent the mesentery. The ileocolic vessels could be appreciated underneath the peritoneum of the mesentery. This was incised using hook cautery. The vessels were dissected using a laparoscopic right angle and a laparoscopic [place] dissector approximately 1 cm from the takeoff of the ileocolic artery and vein. These were ligated using 2 Hemoclips proximally and the Harmonic device distally. Next, a supraumbilical incision was made approximately 4-5 cm in length. The cecum, ascending, and proximal transverse colon and the terminal ileum were extracorporealized. The lights were turned down and ICG was given. The middle colic was appreciated under the light of the camera. Next, the middle colic artery and vein were dissected out 1-2 cm distal to their takeoff. They were both transected using two Hemoclips proximally and the Harmonic device. The transverse colon distal to the tumor was transected using a HOANG blue load stapler. Next, the terminal ileum was transected using a blue load HOANG stapler and the mesentery was taken at its base using a Harmonic device. The specimen was removed from the wound using a wound protector. Next, the terminal ileum was fashioned aside the distal transverse colon in a [id number] fashion. An enterotomy was made into the terminal ileum and then enterotomy was made in the transverse colon. The common channel was created using a HOANG stapler with blue load. Next, the common channel was closed using a TA stapler. The staple line was oversewn using 3-0 silk [place] interrupted sutures. A new [id number]-[id number] functional end-to-end anastomosis was felt to be patent. There was no bleeding [address] [address] OPERATIVE REPORT Name: CONCHA MEZA Room: [address]#: [id number] Admission: 12/14/18 Attend Phys: Michelle selby [place] Discharge: 12/23/18 Date of : 40 Report #: [id number] and this was placed back inside the abdomen. The upper midline incision was closed using looped #1 PDS suture and the abdomen was reinsufflated. The laparoscopic equipment was placed back inside the abdomen and the RUQ was suctioned. The anastomosis appeared to be intact and hemostatic. ICG was used and there appeared to be adequate blood flow to the anastomosis. The abdomen was hemostatic. The 5-mm ports were removed under direct visualization. Bg trocar was removed. Next, the infraumbilical incision was closed using a 0 Vicryl in a [id number] fashion. The skin incisions were then stapled and the port sites were closed using 4-0 Monocryl and dressed. This concluded the procedure. All sponge, needle and instrument counts were correct x 2. COMPLICATIONS: None. DRAINS: None. ESTIMATED BLOOD LOSS: 30 mL. DISPOSITION: The patient was extubated in the operating room and taken to the PACU in stable condition. <ELECTRONICALLY SIGNED> By: Raul Knight DO 12/24/18 1719 [id number] Knight DO /nt
== END 2018-12-23 13:43 | disposition home or self-care (01) | DRG 330 ==
LOC: M.ORTHSURG 15:13 → M.3W 12-22 16:29
PROVIDERS: Internal Medicine; Internal Medicine Gastroenterology; Psychiatry & Neurology Neurology; Surgery; ADMIT Family Medicine
PROC: 0DBL8ZX Excision of Transverse Colon, Via Natural or Artificial Opening Endoscopic, Diagnostic (ICD-10-PCS; principal; 2018-12-17)
PROC: 5A09357 Assistance with Respiratory Ventilation, Less than 24 Consecutive Hours, Continuous Positive Airway Pressure (ICD-10-PCS; 2018-12-18)
PROC: 0DTF4ZZ Resection of Right Large Intestine, Percutaneous Endoscopic Approach (ICD-10-PCS; 2018-12-18)
DX: C18.4 Malignant neoplasm of transverse colon (principal); K92.1 Melena; G40.909 Epilepsy, unspecified, not intractable, without status epilepticus; I48.0 Paroxysmal atrial fibrillation; Z80.0 Family history of malignant neoplasm of digestive organs; Z87.891 Personal history of nicotine dependence; Z88.2 Allergy status to sulfonamides; Z28.21 Immunization not carried out because of patient refusal